=== PATIENT | male | born 1945 | race American Indian/Alaskan Native ===

== ENCOUNTER 2017-07-18 10:02 | Outpatient (CLI) | payer MEDICARE ==
--- NOTE | 2017-07-18 22:48 | XRay Report ---
FINAL REPORT EXAM: XR CHEST ROUTINE 2V HISTORY: HISTORY OF POSITIVE PPD TECHNIQUE: PA and lateral views of the chest PRIORS: None. FINDINGS: Lines, tubes, and devices: N/A Lungs and pleura: Trachea is normal in position. Hyperinflation with flattened hemidiaphragms is noted bilaterally consistent with COPD. Lungs are clear of infiltrate, pleural effusion, vascular congestion, or pneumothorax. Cardiomediastinal silhouette: Cardiac and mediastinal silhouettes are unremarkable. Heavy calcification in the right suprahilar region/right paratracheal region is seen. Findings are likely due to granulomatous disease. Other: Bony structures are intact. IMPRESSION: No acute cardiopulmonary process seen. Hyperinflation related to COPD. Evidence for granulomatous disease.
== END 2017-07-18 10:03 | disposition home or self-care (01) ==
LOC: XRAY 10:02
PROVIDERS: ATTEND Internal Medicine
DX: J98.11 Atelectasis (principal); D71 Functional disorders of polymorphonuclear neutrophils; R76.11 Nonspecific reaction to tuberculin skin test without active tuberculosis
CPT/HCPCS: 71046